=== PATIENT | male | born 1995 | race Two or more races ===

== ENCOUNTER 2020-02-26 20:02 | Emergency (ER) | payer SELFPAY ==
[~2020-02-26] VITALS: Ht 175.3 cm; Wt 60.6 kg
[2020-02-26] MEDS ORDERED: IBUPROFEN 600MG TABLET PO ONE (20:45)
[2020-02-26 20:51] LABS: BASOPHILS % 0.4 % (0.0-2.0); EOSINOPHILS % 1.5 % (0.0-5.0); HEMATOCRIT. 44.8 % (42.0-52.0); HEMOGLOBIN. 15.3 g/dL (14.0-18.0); MEAN CORPUSCULAR HEMOGLOBIN 29.4 pg (28.0-32.0); MEAN CORPUSCULAR VOLUME 86.2 fL (80.0-94.0); MEAN PLATELET VOLUME 12.1 fl (7.4-10.4); MONOCYTES % 8.6 % (2.0-8.0); NEUTROPHILS % 68.5 % (40.0-76.0); PLATELET 96 x1000/uL (130-400); RED CELL DISTRIBUTION WIDTH 13.6 % (11.6-14.6)
[2020-02-26 20:57] LABS: CHLORIDE 106 mEq/L (98-107)
[2020-02-26 21:29] LABS: CLARITY URINE CLEAR (CLEAR); COLOR URINE YELLOW (YELLOW); KETONES URINE NEGATIVE (NEGATIVE); LEUKOCYTE ESTERASE URINE TRACE (NEGATIVE); NITRITE URINE NEGATIVE (NEGATIVE); OCCULT BLOOD URINE NEGATIVE (NEGATIVE); PROTEIN URINE TRACE (NEGATIVE); SPECIFIC GRAVITY URINE 1.029 (1.005-1.030)
[2020-02-26 23:18] VITALS: BP 112/71
== END 2020-02-26 23:22 | disposition home or self-care (01) ==
LOC: ER 20:02
DX: R10.32 Left lower quadrant pain (principal); R07.89 Other chest pain
CPT/HCPCS: 36415; 71045; 80053; 81003; 85025; 93005; 99285